=== PATIENT | male | born 1975 | race Caucasian/White ===

== ENCOUNTER → 2025-09-18 | Outpatient (CLI) | payer BC, MEDICAID, SELFPAY ==
--- NOTE | 2025-09-18 11:52 | XR_ITS ---
Examination: Shoulder, left, 3 views Technique: Shoulder AP internal rotation, AP external rotation, Y view shoulder, 3 views Exam date and time : September 18, 2025, 1228 hours INDICATIONS: Left shoulder pain beginning 2 weeks ago. FINDINGS: No shoulder fracture or dislocation Prominent soft tissue shoulder calcific tendinitis Mild narrowing glenohumeral joint IMPRESSION: Prominent soft tissue calcific tendinitis
== END | disposition home or self-care (01) ==
LOC: CDIM 11:44
PROVIDERS: PCP Nurse Practitioner Family; Referring Provider Nurse Practitioner Family; Visit Provider Nurse Practitioner Family
DX: M75.32 Calcific tendinitis of left shoulder (principal)
CPT/HCPCS: 73030